=== PATIENT | male | born 1940 | race Caucasian/White ===

== ENCOUNTER 2016-07-23 15:30 | Inpatient (IN) | payer MEDICARE, BC ==
[~2016-07-23 15:30] MED LIST: AMANTADINE100 MG PO; ARICEPT10 M2 PO; ASPIRIN325 M3 PO; CALMOSEPTINE OI71 G1 TOP; CARBIDOPA-LEVO1 EAC9 PO; CEFADROXIL 500 MG PO; CLINDAMYCIN HC300 MG PO; COMTAN200 M1 PO; CYANOCOBAL1000 MCG/3 SC; CYCLOBENZAPRINE5 M1 PO; DIPHENHYDRAMINE50 M2 PO; KEFLEX500 MG PO; LEVITRA20 MG PO; MAXZIDE 37.5 M1 EAC1 PO; MELOXICAM15 M1 PO; MIRAPEX0.5 M1 PO; MULTIVITAMINS1 EAC7 PO; PENICILLIN V P250 M1 PO; PEPCID40 M1 PO; PROTONIX40 M2 PO; SELEGILINE HCL5 M1 PO; SENOKOT-S TABL1 EACH PO; SILVADENE20 G1 TOP; SINEMET 25-1001 EAC1 PO; TYLENOL325 M2 PO; ULTRAM50 M1 PO; VESICARE10 MG PO; VITAMIN D32000 UNI3 PO; [UNRECOGNIZED DRUG - OTHER]
[2016-07-23] MEDS ORDERED: ASPIRIN325 M3 PO (16:02)
[2016-07-23] MEDS ORDERED: DIPHENHYDRAMINE50 M2 PO (16:03)
[2016-07-23] MEDS ORDERED: SINEMET 25-1001 EAC1 PO (16:04)
[2016-07-23] MEDS ORDERED: ARICEPT10 M2 PO (16:05)
[2016-07-23] MEDS ORDERED: CYANOCOBAL1000 MCG/3 SC (16:05)
[2016-07-23] MEDS ORDERED: CERTAVITE SR-A1 EACH PO (16:05)
[2016-07-23] MEDS ORDERED: MELOXICAM15 M1 PO (16:05)
[2016-07-23] MEDS ORDERED: SELEGILINE HCL5 M2 PO (16:06)
[2016-07-23] MEDS ORDERED: PENICILLIN V P250 M1 PO ×2 (16:06→16:21)
[2016-07-23] MEDS ORDERED: PROTONIX40 M2 PO (16:06)
[2016-07-23] MEDS ORDERED: PRAMIPEXOLE DI0.5 M1 PO (16:06)
[2016-07-23] MEDS ORDERED: TYLENOL325 M2 PO (16:07)
[2016-07-23] MEDS ORDERED: TRIAMTERENE-HC1 EAC3 PO (16:07)
[2016-07-23] MEDS ORDERED: VITAMIN D-32000 UNI4 PO (16:07)
[2016-07-23] MEDS ORDERED: NORCO 5-325 TA1 EACH PO (16:09)
[2016-07-23] MEDS ORDERED: ESZOPICLONE2 MG PO (16:09)
[2016-07-23] MEDS ORDERED: MILK OF MAGNESIA PO (16:09)
[2016-07-23] MEDS ORDERED: CALCI-CHEW500 MG PO (16:09)
[2016-07-23] MEDS ORDERED: SENOKOT-S TABL1 EACH PO (16:10)
[2016-07-23] MEDS ORDERED: BISCOLAX10 MG PR (16:15)
[2016-07-23] MEDS ORDERED: DOXYCYCLINE HY100 M3 PO (16:22)
[2016-07-23 17:52] LABS: BASO % 0.1 % (0-2); EOSINOPHIL ABSOLUTE COUNT 0.1 tho/cmm (0.0-0.7); HCT-HEMATOCRIT 32.4 % (36.0-53.5); HGB-HEMOGLOBIN 10.3 gm/dl (13.5-17.0); IMMATURE GRANULOCYTES ABSOLUTE 0.03 tho/cmm (0-0.03); IMMATURE GRANULOCYTES PERCENT 0.3 % (0-0.3); LYMPH % 4.4 % (20-45); LYMPH ABSOLUTE COUNT 0.5 tho/cmm (0.8-4.5); MCH (MEAN CORPUSCULAR HGB) 25.3 pg (28.0-32.0); MCHC MEAN CORPUSCULAR HGB CONC 31.8 % (32.0-36.0); MCV (MEAN CELL VOLUME) 79.6 fl (82.0-96.0); MEAN PLATELET VOLUME 9.3 cmc (9.4-12.4); MONO % 11.5 % (0-12); MONOCYTE ABSOLUTE COUNT 1.2 tho/cmm (0.0-1.2); NEUTROPHIL ABSOLUTE COUNT 8.6 tho/cmm (1.6-8.0); NEUTROPHIL-AUTOMATED 8.6 tho/cmm (1.6-8.0); NEUTROPHILS % 82.7 % (40-80); PLATELET COUNT 206 tho/cmm (150-450); RED BLOOD COUNT 4.07 mil/cmm (4.40-5.70); RED CELL DISTRIBUTION WIDTH 14.8 % (12.4-16.4); WHITE BLOOD COUNT 10.4 tho/cmm (4.0-10.0)
[2016-07-23 18:11] LABS: ANION GAP 12 mmol/L (0-20); BLOOD UREA NITROGEN 28 mg/dl (6-24); CALCIUM 8.5 mg/dl (8.5-10.5); CARBON DIOXIDE-VENOUS 30 mmol/L (22-32); CHLORIDE 98 mmol/l (96-110); CREATININE 1.39 mg/dl (0.60-1.30); GLUCOSE 114 mg/dL (70-110); POTASSIUM 3.7 mmol/L (3.7-5.1); SODIUM 136 mmol/L (135-145); eGFR VALUE FOR BLACK 57 mL/Min
[2016-07-23 18:34] LABS: PROCALCITONIN 0.53 ng/ml (0.05-0.09)
--- NOTE | 2016-07-24 13:57 | NUR ---
VIRTUAL CARE NOTE: PT SITTING ON CHAIR, STATES DOING OK, RT LEG HURTS WITH MOVEMENT. ECHO DONE TODAY NOT SEE RESULTS YET. PT DENIES ANY NEEDS OR QUESTIONS AT THIS TIME.
--- NOTE | 2016-07-24 23:35 | NUR ---
VIRTUAL CARE NOTE: ASESSMENT DEFERRED. PT. SLEEPING.
[2016-07-25 05:50] LABS: ANION GAP 13 mmol/L (0-20); BLOOD UREA NITROGEN 20 mg/dl (6-24); CALCIUM 8.4 mg/dl (8.5-10.5); CARBON DIOXIDE-VENOUS 29 mmol/L (22-32); CHLORIDE 99 mmol/l (96-110); CREATININE 1.12 mg/dl (0.60-1.30); GLUCOSE 110 mg/dL (70-110); POTASSIUM 3.7 mmol/L (3.7-5.1); SODIUM 137 mmol/L (135-145); eGFR VALUE FOR BLACK 75 mL/Min
--- NOTE | 2016-07-25 19:38 | NUR ---
VIRTUAL CARE NOTE: ASSESSMENT DEFERRED. PT. SLEEPING.
--- NOTE | 2016-07-26 20:55 | NUR ---
VIRTUAL CARE NOTE: ASSESSMENT DEFERRED. PT EITHER WITH STAFF OR SLEEPING. WILL CONTINUE WITH CHART REVIEW.
[2016-07-27 06:54] LABS: BASO % 0.3 % (0-2); EOS % 2.3 % (0-7); EOSINOPHIL ABSOLUTE COUNT 0.2 tho/cmm (0.0-0.7); HCT-HEMATOCRIT 30.6 % (36.0-53.5); HGB-HEMOGLOBIN 9.7 gm/dl (13.5-17.0); IMMATURE GRANULOCYTES ABSOLUTE 0.14 tho/cmm (0-0.03); IMMATURE GRANULOCYTES PERCENT 1.6 % (0-0.3); LYMPH ABSOLUTE COUNT 0.6 tho/cmm (0.8-4.5); MCH (MEAN CORPUSCULAR HGB) 25.2 pg (28.0-32.0); MCHC MEAN CORPUSCULAR HGB CONC 31.7 % (32.0-36.0); MCV (MEAN CELL VOLUME) 79.5 fl (82.0-96.0); MEAN PLATELET VOLUME 9.1 cmc (9.4-12.4); MONO % 9.3 % (0-12); MONOCYTE ABSOLUTE COUNT 0.8 tho/cmm (0.0-1.2); NEUTROPHIL ABSOLUTE COUNT 6.9 tho/cmm (1.6-8.0); NEUTROPHIL-AUTOMATED 6.9 tho/cmm (1.6-8.0); NEUTROPHILS % 79.5 % (40-80); PLATELET COUNT 263 tho/cmm (150-450); RED BLOOD COUNT 3.85 mil/cmm (4.40-5.70); WHITE BLOOD COUNT 8.7 tho/cmm (4.0-10.0)
[2016-07-27 12:24] LABS: FERRITIN 138 ng/ml (22-388)
[2016-07-27 12:26] LABS: C-REACTIVE PROTEIN 21.6 mg/dl (0-0.9); IRON 12 ug/dl (49-181); IRON BINDING CAPACITY 210 ug/dl (250-450)
[2016-07-27 12:39] LABS: PROCALCITONIN 0.19 ng/ml (0.05-0.09)
[2016-07-27 15:40] LABS: BODY FLUID TYPE BURSA ASPIRATE
[2016-07-27 15:41] LABS: BODY FLUID APPEARANCE CLOUDY (CLEAR); BODY FLUID COLOR YELLOW (COLORLESS); BODY FLUID RBC COUNT 82000 cmm (0); BODY FLUID VOLUME 2.5 ml; BODY FLUID WBC COUNT 68098 cmm
--- NOTE | 2016-07-27 18:48 | NUR ---
VIRTUAL CARE NOTE: ASESSMENT DEFERRED. PT. SLEEPING.
--- NOTE | 2016-07-28 19:35 | NUR ---
VIRTUAL CARE NOTE: ASESSMENT DEFERRED. PT. SLEEPING.
[2016-07-29 06:58] LABS: CREATININE 0.92 mg/dl (0.60-1.30); eGFR VALUE FOR BLACK >90 mL/Min
--- NOTE | 2016-07-29 15:20 | NUR ---
VIRTUAL CARE NOTE: PT SLEEPING AT THIS TIME. ELECTRONIC RECORD REVIEWED. VN WILL CONTINUE TO MONITOR RECORD AND FOLLOW W/ PT
[2016-07-30 07:26] LABS: HGB-HEMOGLOBIN 9.5 gm/dl (13.5-17.0); PLATELET COUNT 343 tho/cmm (150-450)
--- NOTE | 2016-07-30 21:50 | NUR ---
VIRTUAL CARE NOTE: ASSESSMENT DEFERRED. PT SLEEPING X2. WILL CONTINUE WITH CHART REVIEW.
[2016-08-01 05:59] LABS: HGB-HEMOGLOBIN 8.3 gm/dl (13.5-17.0); PLATELET COUNT 302 tho/cmm (150-450)
[2016-08-01 06:16] LABS: CREATININE 0.99 mg/dl (0.60-1.30); eGFR VALUE FOR BLACK 87 mL/Min
[2016-08-01 06:17] LABS: CREATININE 0.92 mg/dl (0.60-1.30); eGFR VALUE FOR BLACK >90 mL/Min
--- NOTE | 2016-08-01 11:42 | NUR ---
VIRTUAL CARE NOTE: PT RESTING ON BED, DID NOT WAKE FOR FOR ROUND, DID NOT HEAR ANY FAMILY IN THE ROOM AT THIS TIME. CHART REVIEWED.
--- NOTE | 2016-08-01 21:17 | NUR ---
VIRTUAL CARE NOTE: ASSESSMENT DEFERRED. PT. SLEEPING.
[2016-08-02 06:12] LABS: BASO % 0.5 % (0-2); EOS % 3.4 % (0-7); EOSINOPHIL ABSOLUTE COUNT 0.3 tho/cmm (0.0-0.7); HCT-HEMATOCRIT 27.3 % (36.0-53.5); HGB-HEMOGLOBIN 8.3 gm/dl (13.5-17.0); IMMATURE GRANULOCYTES ABSOLUTE 0.23 tho/cmm (0-0.03); IMMATURE GRANULOCYTES PERCENT 2.8 % (0-0.3); LYMPH % 11.8 % (20-45); MCH (MEAN CORPUSCULAR HGB) 24.3 pg (28.0-32.0); MCHC MEAN CORPUSCULAR HGB CONC 30.4 % (32.0-36.0); MCV (MEAN CELL VOLUME) 79.8 fl (82.0-96.0); MEAN PLATELET VOLUME 9.1 cmc (9.4-12.4); MONO % 6.8 % (0-12); MONOCYTE ABSOLUTE COUNT 0.6 tho/cmm (0.0-1.2); NEUTROPHIL ABSOLUTE COUNT 6.1 tho/cmm (1.6-8.0); NEUTROPHIL-AUTOMATED 6.1 tho/cmm (1.6-8.0); NEUTROPHILS % 74.7 % (40-80); PLATELET COUNT 387 tho/cmm (150-450); RED BLOOD COUNT 3.42 mil/cmm (4.40-5.70); RED CELL DISTRIBUTION WIDTH 14.9 % (12.4-16.4); WHITE BLOOD COUNT 8.2 tho/cmm (4.0-10.0)
[2016-08-02] MEDS ORDERED: VANCOMYCIN HCL500 MG PO (16:21)
[2016-08-02] MEDS ORDERED: COLACE100 M1 PO (16:25)
[2016-08-02] MEDS ORDERED: MIRALAX17 G2 PO (16:25)
[2016-08-16] MEDS ORDERED: CAL (14:32)
[2016-08-16] MEDS ORDERED: BANOPHEN50 MG PO (14:33)
[2016-08-16] MEDS ORDERED: VANCOMYCIN1 GM/VIA2 IV (14:47)
[2016-08-16] MEDS ORDERED: MEDS (14:48)
== END 2016-08-02 15:30 | DRG 464 ==
LOC: 5WD 15:30 → ORE 07-28 09:15 → 5WD 07-28 10:40
PROVIDERS: Hospitalist; Nurse Practitioner Acute Care; Orthopaedic Surgery Foot and Ankle Surgery; ADMIT Internal Medicine
PROC: 05H633Z Insertion of Infusion Device into Left Subclavian Vein, Percutaneous Approach (ICD-10-PCS; 2016-07-26)
PROC: 0SPC04Z Removal of Internal Fixation Device from Right Knee Joint, Open Approach (ICD-10-PCS; principal; 2016-07-28)
PROC: 0SPC0JZ Removal of Synthetic Substitute from Right Knee Joint, Open Approach (ICD-10-PCS; 2016-07-28)
DX: T84.69XA Infection and inflammatory reaction due to internal fixation device of other site, initial encounter (principal); M00.9 Pyogenic arthritis, unspecified; L03.115 Cellulitis of right lower limb; G20 Parkinson's disease; D62 Acute posthemorrhagic anemia; M70.51 Other bursitis of knee, right knee; K21.0 Gastro-esophageal reflux disease with esophagitis; K59.00 Constipation, unspecified; Z79.82 Long term (current) use of aspirin; B95.62 Methicillin resistant Staphylococcus aureus infection as the cause of diseases classified elsewhere; J45.909 Unspecified asthma, uncomplicated; M19.90 Unspecified osteoarthritis, unspecified site; M51.36 Other intervertebral disc degeneration, lumbar region; Z66 Do not resuscitate; F02.80 Dementia in other diseases classified elsewhere, unspecified severity, without behavioral disturbance, psychotic disturbance, mood disturbance, and anxiety; G89.29 Other chronic pain; Z16.20 Resistance to unspecified antibiotic; R11.0 Nausea; M25.461 Effusion, right knee
CPT/HCPCS: C1751; C8929; J0696; J1650; J1940; J2405; J3370; Q9967

== ENCOUNTER 2016-08-19 15:44 | Inpatient (IN) | payer MEDICARE, BC ==
[~2016-08-19 15:44] MED LIST changes: +BANOPHEN50 MG PO; +BISCOLAX10 MG PR; +CAL; +CALCI-CHEW500 MG PO; +CERTAVITE SR-A1 EACH PO; +COLACE100 M1 PO; +DOXYCYCLINE HY100 M3 PO; +ESZOPICLONE2 MG PO; +MEDS; +MILK OF MAGNESIA PO; +MIRALAX17 G2 PO; +NORCO 5-325 TA1 EACH PO; +PRAMIPEXOLE DI0.5 M1 PO; +SELEGILINE HCL5 M2 PO; +TRIAMTERENE-HC1 EAC3 PO; +VANCOMYCIN HCL500 MG PO; +VANCOMYCIN1 GM/VIA2 IV; +VITAMIN D-32000 UNI4 PO
== END 2016-08-21 15:25 | DRG 908 ==
LOC: SHSC 15:44 → ORE 17:34 → PACU 19:26 → 5EB 21:39
PROVIDERS: ADMIT Orthopaedic Surgery Foot and Ankle Surgery
PROC: 0Y670ZZ Detachment at Right Femoral Region, Open Approach (ICD-10-PCS; principal; 2016-08-19)
PROC: 02HV33Z Insertion of Infusion Device into Superior Vena Cava, Percutaneous Approach (ICD-10-PCS; 2016-08-19)
DX: T81.31XA Disruption of external operation (surgical) wound, not elsewhere classified, initial encounter (principal); Q60.0 Renal agenesis, unilateral; G20 Parkinson's disease; S76.111A Strain of right quadriceps muscle, fascia and tendon, initial encounter; E53.8 Deficiency of other specified B group vitamins; D64.9 Anemia, unspecified; F02.80 Dementia in other diseases classified elsewhere, unspecified severity, without behavioral disturbance, psychotic disturbance, mood disturbance, and anxiety; E55.9 Vitamin D deficiency, unspecified; Z91.81 History of falling; Z87.898 Personal history of other specified conditions; M15.9 Polyosteoarthritis, unspecified; Z79.82 Long term (current) use of aspirin; G89.29 Other chronic pain; M54.5 Low back pain; K21.9 Gastro-esophageal reflux disease without esophagitis; R32 Unspecified urinary incontinence; K59.09 Other constipation; M51.36 Other intervertebral disc degeneration, lumbar region
CPT/HCPCS: J0690; J1170; J3010; J3370